=== PATIENT | male | born 1935 | race Caucasian/White ===

== ENCOUNTER → 2018-03-13 09:15 | Outpatient (CLI) | payer MEDICARE, OTHER, SELFPAY ==
[2018-03-08 15:09] VITALS: TEMP 36.8
[2018-03-13 10:18] LABS: Add Manual Diff / Slide Review NO; Basophils Percent Auto 0.7 % (0-2); Eosinophils Percent Auto 2.2 % (2-4); Hematocrit 30.7 % (41-53); Lymphocytes Percent Auto 22.1 % (25-40); Mean Corpuscular HGB Conc 35.8 % (30-36); Mean Corpuscular Hemoglobin 37.9 PG (26-34); Mean Corpuscular Volume 105.7 fL (80-100); Neutrophils Absolute Auto 1700 /uL (3000-5900); Neutrophils Percent Auto 53.9 % (50-75); Platelet Count 118 X10^3/uL (150-400); Red Cell Distribution Width 13.3 % (11.6-14.8); White Blood Cell Count 3.2 X10^3/uL (4.5-11.0)
[2018-03-13 10:34] LABS: Alanine Aminotransferase 30 IU/L (21-72); Albumin Globulin Ratio 1.7 (1.0-2.8); Alkaline Phosphatase 43 U/L (38-126); Aspartate Aminotransferase 26 IU/L (17-59); BUN Creatinine Ratio 12.9 (6-22); Bilirubin Total 0.7 mg/dL (0.2-1.3); Calcium 9.2 mg/dL (8.4-10.2); Estimated Glomerular Filt Rate 30.4 mL/min (>60); Globulin 2.4 g/dL (1.7-4.1); Glucose 105 mg/dL (80-110); HEMOLYSIS < 15 (0-50); Sodium 138 mmol/L (137-145); Total Protein 6.4 g/dL (6.3-8.2)
[2018-03-13 10:45] LABS: LDL Cholesterol Direct 53 mg/dL (<100)
[2018-03-13 10:46] LABS: Monocytes Percent Auto 21.1 % (3-14)
[2018-03-13 10:47] LABS: Reticulocyte Count, Percent 1.9 % (0.87-2.60)
[2018-03-13 11:02] LABS: T4 Total Thyroxine 3.83 ug/dL (5.5-11.0)
[2018-03-13 11:15] LABS: Thyroid Stimulating Hormone 1.44 uIU/mL (0.47-4.68)
[2018-03-13 11:40] LABS: Vitamin B12 866 pg/mL (239-931)
== END ==
PROVIDERS: Family Provider Family Medicine; PCP Family Medicine; Visit Provider Internal Medicine Hematology & Oncology
DX: D53.9 Nutritional anemia, unspecified (principal); D70.9 Neutropenia, unspecified; D72.9 Disorder of white blood cells, unspecified
CPT/HCPCS: 36415; 80053; 82607; 82746; 83721; 84436; 84443; 85025; 85045

== ENCOUNTER → 2018-03-30 12:42 | Outpatient (CLI) | payer MEDICARE, OTHER, SELFPAY | PROVIDERS: Family Provider Family Medicine; PCP Family Medicine; Visit Provider Family Medicine | DX: G56.92 Unspecified mononeuropathy of left upper limb (principal) | CPT/HCPCS: 95885; 95909 ==

== ENCOUNTER → 2018-06-06 12:20 | Outpatient (CLI) | payer MEDICARE, OTHER, SELFPAY ==
[2018-06-06 12:44] VITALS: BP 102/52; PULSE 76; RESP 16; TEMP 36.4
[2018-06-06] MEDS: DARBEPOETIN 100 MCG/0.5 ML SYRINGE SUBCUT (12:45)
== END ==
PROVIDERS: Family Provider Family Medicine; PCP Family Medicine; Visit Provider Internal Medicine Hematology & Oncology
DX: N18.9 Chronic kidney disease, unspecified (principal); D63.1 Anemia in chronic kidney disease; D46.9 Myelodysplastic syndrome, unspecified
CPT/HCPCS: 96372; J0881

== ENCOUNTER 2018-08-03 14:51 | Emergency (ER) | payer MEDICARE, OTHER, SELFPAY ==
[2018-08-03] VITALS (10 sets, daily range): BP systolic 86–109; BP diastolic 39–87; PULSE 72–79; RESP 12–20; TEMP 36.4–36.7; O2SAT 98–100
[2018-08-03] MEDS: ONDANSETRON 4 MG/2 ML INJ IV (15:04)
[2018-08-03] MEDS: PANTOPRAZOLE 40 MG VIAL IV (15:04)
--- NOTE | 2018-08-03 15:21 | ED_ITS ---
HPI - Weakness General Chief complaint: Weakness Stated complaint: Weakness Time Seen by Provider: 08/03/18 15:01 Source: patient and EMS Mode of arrival: EMS Limitations: no limitations History of Present Illness HPI Narrative: 82 year old male with extensive medical history presents with weakness for the past few days, he's not a very great historian. He states becomes profoundly fatigued with any exertion and has a history of anemia and has had both hematology and nephrology referrals. 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 He denies chest pain, nausea, vomiting or diarrhea. He denies any change in bowel or bladder habits. Specifically he denies any blood in his stool or the presence of dark and tarry stool. He denies any recent fever or chills. He states he has 1 alcoholic beverage daily and denies any extensive history. MD Complaint: generalized weakness Onset (ago): day(s) Duration: constant Location: generalized Migration: none Associated symptoms: denies other symptoms Related Data Home Medications Medication Instructions Recorded Confirmed triamcinolone acetonide 1 applic TOPICAL BID 03/08/18 08/03/18 Previous Rx's Medication Instructions Recorded amlodipine [Norvasc] 5 mg PO QDAY #90 tab 12/01/17 furosemide 40 mg PO QDAY #90 tab 12/01/17 tamsulosin [Flomax] 0.4 mg PO QDAY #90 cap 12/01/17 lisinopril 40 mg tablet 40 mg PO BID #180 tab 07/17/18 warfarin 5 mg tablet 5 mg PO SEE INSTRUCTIONS #90 tab 07/18/18 metoprolol tartrate 100 mg PO BID #180 tab 07/31/18 Allergies Allergy/AdvReac Type Severity Reaction Status Date / Time NSAIDS (Non-Steroidal Allergy Mild WARFARIN Verified 08/03/18 18:20 Anti-Inflamma hydrochlorothiazide Allergy Unknown Verified 08/03/18 18:20 Penicillins AdvReac Mild GI UPSET Verified 08/03/18 18:20 Review of Systems Review of Systems 82 year old pleasantly confused gentleman All systems reviewed & are unremarkable except as noted in HPI and below Constitutional Denies chills, Denies fever(s), Denies lethargy and Reports weakness Eyes Denies change in vision, Denies eye discharge, Denies irritation and Denies loss of vision ENT Ears, Nose, Mouth, and Throat: Denies change in voice, Denies neck pain and Denies sore throat Cardiovascular Denies chest pain, Denies irregular heart rhythm, Reports lightheadedness, Denies palpitations, Reports dyspnea, Denies dyspnea on exertion and Denies orthopnea Respiratory Denies cough, Reports dyspnea, Denies dyspnea on exertion and Denies wheezing Gastrointestinal Gastrointestinal: Denies abdominal pain, Denies change in bowel habits, Denies diarrhea, Denies nausea and Denies vomiting Genitourinary Denies hematuria, Denies flank pain, Denies urinary incontinence and Denies urinary urgency Musculoskeletal Denies neck pain Integumentary/Breasts Denies pruritus, Denies erythema, Denies rash and Denies wounds Neurologic Denies confusion, Denies loss of vision and Reports weakness Psychiatric Denies anxiety, Denies confusion, Denies depression, Denies homicidal ideation and Denies suicidal ideation Endocrine Denies palpitations Hematologic/Lymphatic Denies easy bruising Allergic/Immunologic Denies wheezing PFSH Surgical History History of tonsillectomy Status post appendectomy Status post biopsy Family History Brother Dementia Father Benign brain tumor Mother Colorectal cancer Sister Age: 80 Hypertension Social History Smoking Status: Former smoker alcohol intake: current Exam Narrative Exam Narrative: Pleasantly confused 82-year-old male appears on well, appears jaundiced and pale from the door. Initial Vital Signs Initial Vital Signs: Vital Signs Temperature 97.6 F 08/03/18 14:57 Pulse Rate 79 08/03/18 14:57 Respiratory Rate 20 08/03/18 14:57 Blood Pressure 106/41 L 08/03/18 14:57 Pulse Oximetry 100 08/03/18 14:57 Const General: cooperative, well developed and acute distress Nutritional Appearance: overweight Orientation: alert, awake, oriented x3 and confused [facility] Head: normocephalic and atraumatic Ears: external ears normal and TM's normal bilaterally Nose: external nose normal and No nasal discharge Face and sinus: sinuses nontender, face symmetric, no sinus tenderness and No dry mucous membranes Mouth: oral mucosae normal and moist mucous membranes Teeth and gingiva: dentition normal Throat: tonsils normal and uvula midline Eyes General: appearance normal, both eyes and all related structures Eyelids: eyelids normal Conjunctivae: conjunctivae normal Sclera: sclerae normal Pupils: PERRL EOM: EOM intact bilaterally Chest Chest: normal inspection of the chest Cardio Rate: regular rate Rhythm: regular rhythm Heart Sounds: no click, no gallops, no murmurs and no rubs Pulses: normal peripheral pulses GI Other: melena Back/Spine/Pelvis Back: No CVA tenderness Cervical Spine: cervical ROM normal and No pain with cervical ROM Thoracic/Lumbar Spine: thoracic and lumbar spine normal to inspection Neuro General: alert, oriented x3, gait normal and no focal motor deficits Speech: speech normal Psych Appearance: well kempt Mental Status: mental status grossly normal Attitude: cooperative Thought Content: normal and suicidality Judgment: judgment good Course Orders Ordered: ED Orders 08/03/18 15:21 Complete Blood Count AUTO DIFF Stat Comprehensive Metabolic Panel Stat Fresh Frozen Plasma Stat Packed Cells Stat Partial Thromboplastin Time Stat Prothrombin Time INR Stat Type and Screen Stat Discontinued Medications Phytonadione 5 mg/ Dextrose 50.5 mls @ 101 mls/hr IV NOW ONE Stop: 08/03/18 16:43 Last Infusion: 08/03/18 17:37 Dose: 0 mls/hr Admin: 08/03/18 17:06 Dose: 101 mls/hr Ondansetron HCl (Zofran) 4 mg IV NOW ONE Stop: 08/03/18 15:02 Last Admin: 08/03/18 15:04 Dose: 4 mg Pantoprazole Sodium (Protonix) 40 mg IV NOW ONE Stop: 08/03/18 15:02 Last Admin: 08/03/18 15:04 Dose: 40 mg Reevaluation(s) Reevaluation #1: Patient denies any change in his Coumadin dose or diet. He denies any bleeding. Baseline creatinine is in the 2s but has bumped to 4 today. Baseline INR tends to be 2.5-3.5 but has critical elevation today. No prior history of elevated transaminases Consultations Consultation #1: call to [facility] in [place] for transfer, they are happy to accept. Dr. Pink and I are in agreement that [facility] is preferred over [facility]. Vit K, Packed Cells also ordered Vital Signs - 8 hr 08/03/18 14:57 08/03/18 16:45 08/03/18 16:46 Temperature 97.6 F 97.5 F L 97.5 F L Pulse Rate 79 78 78 Respiratory Rate 20 15 15 Blood Pressure 106/41 L 101/46 L Blood Pressure [Right Arm] 101/46 L Pulse Oximetry 100 100 08/03/18 16:59 Temperature 97.8 F Pulse Rate 77 Respiratory Rate 13 Blood Pressure 105/46 L Blood Pressure [Right Arm] Pulse Oximetry MDM - Weakness Lab Data Result diagrams: 08/03/18 15:21 08/03/18 15:21 Lab Results 08/03/18 08/03/18 08/03/18 Range/Units 15:21 15:21 15:21 WBC 3.0 L (4.5-11.0) X10^3/uL RBC 1.62 L (4.5-5.9) X10^6/uL Hgb 6.0 L* (13.5-17.5) g/dL Hct 17.8 L* (41-53) % MCV 109.7 H (80-100) fL MCH 37.2 H (26-34) PG MCHC 33.9 (30-36) % RDW 15.1 H (11.6-14.8) % Plt Count 83 L (150-400) X10^3/uL Neut % (Auto) 76.1 H (50-75) % Lymph % (Auto) 11.8 L (25-40) % [place]bers[place] % (Auto) 11.1 (3-14) % Eos % (Auto) 0.3 L (2-4) % Baso % (Auto) 0.7 (0-2) % Neut # (Auto) 2300 L (8901-9802) /uL Platelet Estimate Decreased on smear RBC Morphology See below Macrocytosis 1+ H PT 195.6 H (10.1-12.7) SECONDS INR 17.1 H* (0.9-1.3) APTT 95 H* (26.4-36.2) SECONDS Sodium 140 (137-145) mmol/L Potassium 5.1 (3.4-5.1) mmol/L Chloride 109 H (98-107) mmol/L Carbon Dioxide 16 L (22-32) mmol/L BUN 113 H* (9-20) mg/dL Creatinine 4.40 H (0.66-1.25) mg/dL Estimated GFR 12.9 L (>60) mL/min BUN/Creatinine Ratio 25.7 H (6-22) Glucose 142 H (80-110) mg/dL Calcium 8.9 (8.4-10.2) mg/dL Total Bilirubin 4.6 H (0.2-1.3) mg/dL AST 280 H (17-59) IU/L ALT 297 H (21-72) IU/L Alkaline Phosphatase 197 H (38-126) U/L Total Protein 5.5 L (6.3-8.2) g/dL Albumin 3.3 L (3.5-5.0) g/dL Globulin 2.2 (1.7-4.1) g/dL Albumin/Globulin Ratio 1.5 (1.0-2.8) Blood Type Antibody Screen Crossmatch 08/03/18 Range/Units 15:21 WBC (4.5-11.0) X10^3/uL RBC (4.5-5.9) X10^6/uL Hgb (13.5-17.5) g/dL Hct (41-53) % MCV (80-100) fL MCH (26-34) PG MCHC (30-36) % RDW (11.6-14.8) % Plt Count (150-400) X10^3/uL Neut % (Auto) (50-75) % Lymph % (Auto) (25-40) % [place] % (Auto) (3-14) % Eos % (Auto) (2-4) % Baso % (Auto) (0-2) % Neut # (Auto) (1554-6273) /uL Platelet Estimate RBC Morphology Macrocytosis PT (10.1-12.7) SECONDS INR (0.9-1.3) APTT (26.4-36.2) SECONDS Sodium (137-145) mmol/L Potassium (3.4-5.1) mmol/L Chloride (98-107) mmol/L Carbon Dioxide (22-32) mmol/L BUN (9-20) mg/dL Creatinine (0.66-1.25) mg/dL Estimated GFR (>60) mL/min BUN/Creatinine Ratio (6-22) Glucose (80-110) mg/dL Calcium (8.4-10.2) mg/dL Total Bilirubin (0.2-1.3) mg/dL AST (17-59) IU/L ALT (21-72) IU/L Alkaline Phosphatase (38-126) U/L Total Protein (6.3-8.2) g/dL Albumin (3.5-5.0) g/dL Globulin (1.7-4.1) g/dL Albumin/Globulin Ratio (1.0-2.8) Blood Type A Positive Antibody Screen Negative Crossmatch See Detail Point of Care Testing Stool Occult Blood Positive Discharge Plan Departure Patient Disposition: [facility] Clinical Impression: Acute upper gastrointestinal bleeding, Acute renal failure, Supratherapeutic INR Interventions: ED Discharge Assessment Last Done: 08/03/18 18:32 Prescriptions: No Action amlodipine [Norvasc] 5 MG tablet 5 mg PO QDAY Qty: 90 RF: 3 tamsulosin [Flomax] 0.4 MG capsule,extended release 24hr 0.4 mg PO QDAY Qty: 90 RF: 3 furosemide 40 MG tablet 40 mg PO QDAY Qty: 90 RF: 3 lisinopril 40 mg tablet 40 mg PO BID Qty: 180 RF: 3 warfarin [Coumadin] 5 mg tablet 5 mg PO SEE INSTRUCTIONS Qty: 90 RF: 1 metoprolol tartrate 100 mg tablet 100 mg PO BID Qty: 180 RF: 3 triamcinolone acetonide 0.1 % Cream 1 applic TOPICAL BID RF: 0
[2018-08-03 15:39] LABS: Basophils Percent Auto 0.7 % (0-2); Eosinophils Percent Auto 0.3 % (2-4); Lymphocytes Percent Auto 11.8 % (25-40); Mean Corpuscular HGB Conc 33.9 % (30-36); Mean Corpuscular Hemoglobin 37.2 PG (26-34); Mean Corpuscular Volume 109.7 fL (80-100); Monocytes Percent Auto 11.1 % (3-14); Neutrophils Absolute Auto 2300 /uL (3000-5900); Neutrophils Percent Auto 76.1 % (50-75); Platelet Count 83 X10^3/uL (150-400); Red Blood Cell Count 1.62 X10^6/uL (4.5-5.9); Red Cell Distribution Width 15.1 % (11.6-14.8)
[2018-08-03 15:42] LABS: Hematocrit 17.8 % (41-53)
[2018-08-03 15:43] LABS: Add Manual Diff / Slide Review SLIDE REVIEW; Platelet Estimate Decreased on smear
[2018-08-03 15:44] LABS: Macrocytosis 1+
[2018-08-03 15:51] LABS: Alanine Aminotransferase 297 IU/L (21-72); Albumin 3.3 g/dL (3.5-5.0); Albumin Globulin Ratio 1.5 (1.0-2.8); Alkaline Phosphatase 197 U/L (38-126); Aspartate Aminotransferase 280 IU/L (17-59); BUN Creatinine Ratio 25.7 (6-22); Bilirubin Total 4.6 mg/dL (0.2-1.3); Calcium 8.9 mg/dL (8.4-10.2); Carbon Dioxide 16 mmol/L (22-32); Chloride 109 mmol/L (98-107); Estimated Glomerular Filt Rate 12.9 mL/min (>60); Globulin 2.2 g/dL (1.7-4.1); Glucose 142 mg/dL (80-110); HEMOLYSIS < 15 (0-50); Potassium 5.1 mmol/L (3.4-5.1); Sodium 140 mmol/L (137-145); Total Protein 5.5 g/dL (6.3-8.2)
[2018-08-03 16:01] LABS: Prothrombin Time 195.6 SECONDS (10.1-12.7)
[2018-08-03 16:03] LABS: INR 17.1 (0.9-1.3)
[2018-08-03 16:05] LABS: PTT Partial Thromboplastin Tim 95 SECONDS (26.4-36.2)
[2018-08-03 16:08] LABS: Blood Urea Nitrogen 113 mg/dL (9-20)
[2018-08-03] MEDS: PHYTONADIONE (VIT K1) 5 MG in DEXTROSE 5 % IN WATER 50 ML 101 ML IV (17:06)
--- NOTE | 2018-08-03 18:26 | PC.NURSE ---
allen daughter in law called to inform time of transport
--- NOTE | 2018-08-03 19:10 | PC.NURSE ---
[facility] UNABLE TO TO SCAN IN [facility], LUIS ENRIQUE SCHNEIDER RN AT BEDSIDE TO VERIFY. REASON FOR ADMINISTRATION DELAY. UNABLE TO SCAN. MANUALLY CHECKED [facility] PRODUCT WITH LUIS ENRIQUE MORGAN
== END 2018-08-03 20:34 | disposition short-term general hospital (02) ==
PROVIDERS: Emergency Provider Emergency Medicine; Family Provider Family Medicine; PCP Family Medicine
DX: K92.2 Gastrointestinal hemorrhage, unspecified (principal); N17.9 Acute kidney failure, unspecified; R79.1 Abnormal coagulation profile
CPT/HCPCS: 36415; 36430; 80053; 82272; 85025; 85610; 85730; 86850; 86900; 86901; 86927; 93005; 93041; 96365; 96375; 99283; 99285; P9016; C9113; J2405; J3430